=== PATIENT | female | born 1945 | race Caucasian/White ===

== ENCOUNTER 2023-06-02 15:20 | Emergency (ER) | payer SELFPAY ==
[~2023-06-02] VITALS: Ht 152.4 cm; Wt 64.0 kg
[2023-06-02 15:27] VITALS: TEMP 98.5
[2023-06-02] MEDS ORDERED: normal saline 1000ml 1,000 ML IV ONE (15:55)
[2023-06-02] MEDS ORDERED: metoclopramide 5 mg/ml inj IV ONE (15:55)
[2023-06-02] MEDS ORDERED: diphenhydrAMINE 50 mg/ml inj IV ONE (15:55)
[2023-06-02 16:25] LABS: BASOPHILS # (AUTO) 0.1 X10'3 (0-0.2); BASOPHILS % (AUTO) 0.6 % (0-1); EOSINOPHILS # (AUTO) 0.3 X10'3 (0-0.9); EOSINOPHILS % (AUTO) 2.5 % (0-6); HEMATOCRIT 46.5 % (35.0-45.0); HEMOGLOBIN 15.4 g/dl (12.0-16.0); LYMPHOCYTES # (AUTO) 1.5 X10'3 (1.1-4.8); LYMPHOCYTES % (AUTO) 11.6 % (21-51); MEAN CORPUSCULAR HEMOGLOBIN 32.1 PG (27.0-31.0); MEAN CORPUSCULAR HGB CONC 33.2 g/dL (33.0-36.5); MEAN CORPUSCULAR VOLUME 96.9 FL (78-98); MEAN PLATELET VOLUME 7.6 FL (7.4-10.4); MONOCYTES # (AUTO) 0.9 X10'3 (0-0.9); MONOCYTES % (AUTO) 7.1 % (2-12); NEUTROPHILS # (AUTO) 10.2 X10'3 (1.8-7.7); NEUTROPHILS % (AUTO) 78.2 % (42-75); PLATELET COUNT 364 X10'3 (140-440); RED CELL DISTRIBUTION WIDTH 13.6 % (11.5-14.5)
[2023-06-02 17:53] LABS: BILIRUBIN,URINE NEGATIVE (Neg); CLARITY,URINE CLEAR (Clear); COLOR,URINE YELLOW (Yellow); GLUCOSE, URINE NEGATIVE (Neg); KETONES,URINE NEGATIVE (Neg); LEUKOCYTE ESTERASE ,URINE NEGATIVE (Neg); NITRITES, URINE NEGATIVE (Neg); OCCULT BLOOD,URINE NEGATIVE (Neg); PROTEIN,URINE NEGATIVE (Neg); UROBILINOGEN,URINE 0.2 E.U/dL (0.2-1.0)
[2023-06-02 17:54] LABS: UA COLLECTION TYPE VOIDED
[2023-06-02 17:58] LABS: ALANINE AMINOTRANSFERASE 21 U/L (12-78); ALBUMIN 3.2 G/DL (3.4-5.0); ALKALINE PHOSPHATASE 82 IU/L (46-116); ANION GAP 9 (8-16); ASPARTATE AMINO TRANSFERASE 18 U/L (10-37); BILIRUBIN,TOTAL 0.4 MG/DL (0.1-1.0); BLOOD UREA NITROGEN 15 MG/DL (7-18); BUN/CREATININE RATIO 17.6 (10.0-20.0); CALCIUM 8.4 MG/DL (8.5-10.1); CHLORIDE 108 MMOL/L (99-107); CREATININE 0.85 MG/DL (0.40-0.90); GLUCOSE 111 MG/DL (70-104); LIPASE 155 U/L (16-77); POTASSIUM 4.2 MMOL/L (3.5-5.1); SODIUM 143 MMOL/L (135-145); TOTAL PROTEIN 6.5 G/DL (6.4-8.2); eCRCL 39 ML/MIN; eGFR 65 ML/MIN
[2023-06-02 19:26] VITALS: BP 179/96; PULSE 101; RESP 18; O2SAT 95
== END 2023-06-02 19:32 | disposition home or self-care (01) ==
LOC: ER 15:22
DX: R11.2 Nausea with vomiting, unspecified (principal); Z20.822 Contact with and (suspected) exposure to COVID-19; R10.9 Unspecified abdominal pain; R50.9 Fever, unspecified; Z88.6 Allergy status to analgesic agent
CPT/HCPCS: 36415; 71045; 80053; 81003; 83690; 84145; 85025; 87811; 96361; 96374; 96375; 99284; J1200; J2765; J7030

== ENCOUNTER 2023-06-22 10:54 | Emergency (ER) | payer MEDICARE ==
[~2023-06-22] VITALS: Ht 165.1 cm; Wt 63.6 kg
[2023-06-22 12:51] LABS: ALANINE AMINOTRANSFERASE 14 U/L (12-78); ALBUMIN 3.2 G/DL (3.4-5.0); ALBUMIN/GLOBULIN RATIO 0.7 (1.1-1.5); ALKALINE PHOSPHATASE 92 IU/L (46-116); ANION GAP 12 (8-16); ASPARTATE AMINO TRANSFERASE 17 U/L (10-37); BILIRUBIN,TOTAL 0.3 MG/DL (0.1-1.0); BLOOD UREA NITROGEN 19 MG/DL (7-18); BUN/CREATININE RATIO 17.8 (10.0-20.0); CHLORIDE 103 MMOL/L (99-107); CREATININE 1.07 MG/DL (0.40-0.90); GLUCOSE 113 MG/DL (70-104); POTASSIUM 4.2 MMOL/L (3.5-5.1); SODIUM 137 MMOL/L (135-145); TOTAL CARBON DIOXIDE 22.2 MMOL/L (24-32); TOTAL PROTEIN 7.8 G/DL (6.4-8.2); eCRCL 38 ML/MIN; eGFR 49 ML/MIN
[2023-06-22 12:52] LABS: BASOPHILS % (AUTO) 0.2 % (0-1); EOSINOPHILS # (AUTO) 0.1 X10'3 (0-0.9); EOSINOPHILS % (AUTO) 0.6 % (0-6); HEMATOCRIT 43.4 % (35.0-45.0); LYMPHOCYTES # (AUTO) 0.7 X10'3 (1.1-4.8); LYMPHOCYTES % (AUTO) 4.6 % (21-51); MEAN CORPUSCULAR HEMOGLOBIN 30.9 PG (27.0-31.0); MEAN CORPUSCULAR HGB CONC 32.4 g/dL (33.0-36.5); MEAN CORPUSCULAR VOLUME 95.3 FL (78-98); MEAN PLATELET VOLUME 6.6 FL (7.4-10.4); MONOCYTES # (AUTO) 1.2 X10'3 (0-0.9); MONOCYTES % (AUTO) 8.1 % (2-12); NEUTROPHILS # (AUTO) 12.6 X10'3 (1.8-7.7); NEUTROPHILS % (AUTO) 86.5 % (42-75); PLATELET COUNT 530 X10'3 (140-440); RED BLOOD COUNT 4.55 X10'6 (4.20-5.60); RED CELL DISTRIBUTION WIDTH 13.4 % (11.5-14.5); WHITE BLOOD COUNT 14.5 X10'3 (4.5-11.0)
[2023-06-22 12:54] LABS: LIPASE 48 U/L (16-77)
[2023-06-22] MEDS ORDERED: normal saline 1000ml 1,000 ML IV ONE ×2 (13:50)
[2023-06-22] MEDS ORDERED: ondansetron/PF 4mg/2ml inj IV ONE (13:50)
[2023-06-22 14:44] VITALS: BP 163/91; PULSE 111; RESP 18; TEMP 97.9; O2SAT 95
[2023-06-22 15:06] LABS: BILIRUBIN,URINE NEGATIVE (Neg); CLARITY,URINE CLEAR (Clear); COLOR,URINE YELLOW (Yellow); GLUCOSE, URINE NEGATIVE (Neg); KETONES,URINE TRACE mg/dl (Neg); LEUKOCYTE ESTERASE ,URINE NEGATIVE (Neg); NITRITES, URINE NEGATIVE (Neg); OCCULT BLOOD,URINE NEGATIVE (Neg); PH,URINE 5.5 (4.8-8.0); PROTEIN,URINE NEGATIVE (Neg); UROBILINOGEN,URINE 0.2 E.U/dL (0.2-1.0)
[2023-06-22 15:10] LABS: UA COLLECTION TYPE CLN CATCH MIDSTREAM
[2023-06-22] MEDS ORDERED: ONDA4TAB12 PO (16:09)
== END 2023-06-22 17:21 | disposition home or self-care (01) ==
LOC: ER 10:55
DX: A08.4 Viral intestinal infection, unspecified (principal); R10.84 Generalized abdominal pain; R11.2 Nausea with vomiting, unspecified; Z88.6 Allergy status to analgesic agent
CPT/HCPCS: 36415; 71045; 80053; 81003; 83690; 83735; 84484; 85025; 96360; 96361; 99284; J7030

== ENCOUNTER 2023-06-24 08:17 | Emergency (ER) | payer MEDICARE ==
[~2023-06-24] VITALS: Ht 165.1 cm; Wt 65.0 kg
[~2023-06-24 08:17] MED LIST: ONDA4TAB12 PO
[2023-06-24] MEDS ORDERED: normal saline 1000ML IV soln IVB ONE (08:35)
[2023-06-24 09:54] LABS: EOSINOPHILS # (AUTO) 0.1 X10'3 (0-0.9); EOSINOPHILS % (AUTO) 1.1 % (0-6); HEMOGLOBIN 13.5 g/dl (12.0-16.0); NEUTROPHILS # (AUTO) 3.6 X10'3 (1.8-7.7)
[2023-06-24 10:02] LABS: BASOPHILS % (AUTO) 0.6 % (0-1); HEMATOCRIT 40.3 % (35.0-45.0); LYMPHOCYTES # (AUTO) 0.9 X10'3 (1.1-4.8); LYMPHOCYTES % (AUTO) 16.1 % (21-51); MEAN CORPUSCULAR HEMOGLOBIN 31.5 PG (27.0-31.0); MEAN CORPUSCULAR HGB CONC 33.5 g/dL (33.0-36.5); MONOCYTES # (AUTO) 0.9 X10'3 (0-0.9); NEUTROPHILS % (AUTO) 66.2 % (42-75); PLATELET COUNT 402 X10'3 (140-440); RED BLOOD COUNT 4.28 X10'6 (4.20-5.60); RED CELL DISTRIBUTION WIDTH 13.4 % (11.5-14.5); WHITE BLOOD COUNT 5.4 X10'3 (4.5-11.0)
[2023-06-24 10:21] LABS: ALANINE AMINOTRANSFERASE 13 U/L (12-78); ALBUMIN 2.5 G/DL (3.4-5.0); ALBUMIN/GLOBULIN RATIO 0.6 (1.1-1.5); ALKALINE PHOSPHATASE 78 IU/L (46-116); ANION GAP 10 (8-16); ASPARTATE AMINO TRANSFERASE 20 U/L (10-37); BILIRUBIN,TOTAL 0.2 MG/DL (0.1-1.0); BLOOD UREA NITROGEN 13 MG/DL (7-18); BUN/CREATININE RATIO 14.6 (10.0-20.0); CALCIUM 8.4 MG/DL (8.5-10.1); CHLORIDE 105 MMOL/L (99-107); CREATININE 0.89 MG/DL (0.40-0.90); GLUCOSE 99 MG/DL (70-104); POTASSIUM 4.2 MMOL/L (3.5-5.1); SODIUM 137 MMOL/L (135-145); TOTAL CARBON DIOXIDE 21.7 MMOL/L (24-32); TOTAL PROTEIN 6.5 G/DL (6.4-8.2); eCRCL 46 ML/MIN; eGFR 61 ML/MIN
[2023-06-24 10:27] LABS: ETHANOL < 10 MG/DL (<10); LIPASE 32 U/L (16-77); MAGNESIUM 1.9 MG/DL (1.5-2.4); PRO BRAIN NATRIURETIC PEPTIDE 252 PG/ML (0-450)
[2023-06-24 11:26] LABS: PLATELET ESTIMATE NORMAL; TOTAL CELLS COUNTED 100
[2023-06-24] MEDS ORDERED: dexamethasone sod phosphate 10mg/ml inj IV STA (11:39)
[2023-06-24] MEDS ORDERED: ipratropium/albuterol 3ml nebule NEB ONE (11:40)
[2023-06-24] MEDS ORDERED: diphenhydrAMINE 25 MG/10 ML UD oral solution PO ONE (11:40)
[2023-06-24 11:49] VITALS: PULSE 98; RESP 18
[2023-06-24] MEDS ORDERED: ALBU6.7H14 INH (11:50)
[2023-06-24 11:54] VITALS: PULSE 92; RESP 20; O2SAT 100
[2023-06-24 12:24] VITALS: BP 171/81; PULSE 16; RESP 22; TEMP 98.9; O2SAT 94
== END 2023-06-24 12:26 | disposition home or self-care (01) ==
LOC: ER 08:18
DX: B34.9 Viral infection, unspecified (principal); Z59.00 Homelessness unspecified; W18.39XA Other fall on same level, initial encounter; Y99.8 Other external cause status; Y93.89 Activity, other specified; Y92.89 Other specified places as the place of occurrence of the external cause
CPT/HCPCS: 36415; 71045; 80053; 80320; 83690; 83735; 83880; 84484; 85007; 85025; 93005; 94640; 96361; 96374; 99285; J1100; J7030; Q0163; 94760

== ENCOUNTER 2023-08-24 19:04 | Inpatient (IN) | payer MEDICARE ==
[~2023-08-24] VITALS: Ht 165.1 cm; Wt 61.0 kg
[~2023-08-24 19:04] MED LIST changes: +ALBU6.7H14 INH
[2023-08-24 19:28] LABS: BASOPHILS # (AUTO) 0.1 X10'3 (0-0.2); BASOPHILS % (AUTO) 0.8 % (0-1); EOSINOPHILS # (AUTO) 0.1 X10'3 (0-0.9); EOSINOPHILS % (AUTO) 0.4 % (0-6); HEMATOCRIT 32.4 % (35.0-45.0); HEMOGLOBIN 10.9 g/dl (12.0-16.0); LYMPHOCYTES # (AUTO) 1.6 X10'3 (1.1-4.8); LYMPHOCYTES % (AUTO) 9.6 % (21-51); MEAN CORPUSCULAR HEMOGLOBIN 29.3 PG (27.0-31.0); MEAN CORPUSCULAR HGB CONC 33.7 g/dL (33.0-36.5); MEAN PLATELET VOLUME 6.6 FL (7.4-10.4); MONOCYTES # (AUTO) 1.6 X10'3 (0-0.9); MONOCYTES % (AUTO) 9.8 % (2-12); NEUTROPHILS # (AUTO) 12.9 X10'3 (1.8-7.7); NEUTROPHILS % (AUTO) 79.4 % (42-75); PLATELET COUNT 463 X10'3 (140-440); RED BLOOD COUNT 3.73 X10'6 (4.20-5.60); RED CELL DISTRIBUTION WIDTH 15.9 % (11.5-14.5); WHITE BLOOD COUNT 16.2 X10'3 (4.5-11.0)
[2023-08-24 19:45] LABS: ALANINE AMINOTRANSFERASE 15 U/L (12-78); ALBUMIN 2.2 G/DL (3.4-5.0); ALBUMIN/GLOBULIN RATIO 0.5 (1.1-1.5); ALKALINE PHOSPHATASE 63 IU/L (46-116); ANION GAP 11 (8-16); ASPARTATE AMINO TRANSFERASE 14 U/L (10-37); BILIRUBIN,TOTAL 0.3 MG/DL (0.1-1.0); BLOOD UREA NITROGEN 14 MG/DL (7-18); BUN/CREATININE RATIO 13.7 (10.0-20.0); CALCIUM 8.2 MG/DL (8.5-10.1); CHLORIDE 105 MMOL/L (99-107); CREATININE 1.02 MG/DL (0.40-0.90); GLUCOSE 107 MG/DL (70-104); POTASSIUM 4.3 MMOL/L (3.5-5.1); SODIUM 139 MMOL/L (135-145); TOTAL CARBON DIOXIDE 22.8 MMOL/L (24-32); TOTAL PROTEIN 6.4 G/DL (6.4-8.2); eCRCL 40 ML/MIN; eGFR 52 ML/MIN
[2023-08-24 19:56] LABS: PRO BRAIN NATRIURETIC PEPTIDE 274 PG/ML (0-450)
[2023-08-24 20:08] LABS: BILIRUBIN,URINE SMALL (Neg); COLOR,URINE YELLOW (Yellow); GLUCOSE, URINE NEGATIVE (Neg); KETONES,URINE TRACE mg/dl (Neg); LEUKOCYTE ESTERASE ,URINE NEGATIVE (Neg); NITRITES, URINE NEGATIVE (Neg); OCCULT BLOOD,URINE NEGATIVE (Neg); PH,URINE 5.5 (4.8-8.0); PROTEIN,URINE NEGATIVE (Neg); UROBILINOGEN,URINE 0.2 E.U/dL (0.2-1.0)
[2023-08-24 20:20] LABS: UA COLLECTION TYPE CLN CATCH MIDSTREAM
[2023-08-24 20:21] LABS: BACTERIA,URINE FEW /HPF (Neg); CLARITY,URINE SLIGHTLY CLOUDY (Clear); MUCUS STRANDS FEW /LPF (Neg); RBC,URINE 0-2 /HPF (0-2); SQUAMOUS EPITHELIAL CELL,UR FEW /LPF (FEW); WBC,URINE 0-4 /HPF (0-4)
[2023-08-24] MEDS: CefTRIAXone/D5W-Rocephin 1gm 50 ML IV ONE (23:53)
[2023-08-24] MEDS: azithromycin/NS 500mg/250ml 250 ML IV ONE (23:56)
[2023-08-25] VITALS (21 sets, daily range): BP systolic 103–137; BP diastolic 53–71; PULSE 74–111; RESP 14–20; TEMP 97.1–98; O2SAT 90–97
[2023-08-25] MEDS ORDERED: magnesium 2GM in 50ml NS 50 ML IV PRN (00:05)
[2023-08-25] MEDS ORDERED: potassium Cl 20 mEq SR tablet PO PRN ×2 (00:05)
[2023-08-25] MEDS ORDERED: magnesium Cl slow-release 64mg tablet PO PRN (00:05)
[2023-08-25] MEDS ORDERED: magnesium 4gm in 100ml NS 100 ML IV PRN (00:05)
[2023-08-25] MEDS ORDERED: mag hydrox/Alum hydrox/simeth 30ml oral suspension PO PRN (00:05)
[2023-08-25] MEDS ORDERED: magnesium hydroxide 30ml (MOM) UD suspension PO PRN (00:05)
[2023-08-25] MEDS ORDERED: ondansetron/PF 4mg/2ml inj IV PRN (00:05)
[2023-08-25] MEDS ORDERED: potassium Cl 40MEQ/1/2NS 520ml 520 ML IV PRN (00:05)
[2023-08-25] MEDS: ipratropium/albuterol 3ml nebule NEB SCH (00:05)
[2023-08-25] MEDS: normal saline 1000ml 1,000 ML IV SCH (00:34)
[2023-08-25] MEDS: methylPREDNISolone sod succ 125mg/2ml vial IV ONE (00:46)
[2023-08-25 01:45] LABS: POTASSIUM 4.3 MMOL/L (3.5-5.1)
[2023-08-25] MEDS: K and/or MAG REPLACEMENT MC SCH (08:00)
[2023-08-25] MEDS: methylPREDNISolone sod succ/PF 40mg inj. IV SCH (08:09)
[2023-08-25] MEDS: docusate sod 100mg capsule PO SCH (08:21)
[2023-08-25] MEDS: enoxaparin 40mg/0.4ml syringe SUBCUT SCH (08:22)
[2023-08-25] MEDS: azithromycin/NS 500mg/250ml 250 ML IV SCH (08:34)
[2023-08-25] MEDS: guaiFENesin/DM 10ml UD oral syrup PO PRN (12:42)
[2023-08-26] VITALS (15 sets, daily range): BP systolic 109–158; BP diastolic 60–76; PULSE 61–108; RESP 16–20; TEMP 97.7–98.6; O2SAT 92–98
[2023-08-26] MEDS: CefTRIAXone/D5W-Rocephin 1gm 50 ML IV SCH (00:36)
[2023-08-26 06:41] LABS: BASOPHILS % (AUTO) 0.1 % (0-1); EOSINOPHILS % (AUTO) 0 % (0-6); HEMATOCRIT 30.8 % (35.0-45.0); HEMOGLOBIN 10.2 g/dl (12.0-16.0); LYMPHOCYTES # (AUTO) 1.7 X10'3 (1.1-4.8); LYMPHOCYTES % (AUTO) 5.7 % (21-51); MEAN CORPUSCULAR HEMOGLOBIN 28.9 PG (27.0-31.0); MEAN CORPUSCULAR HGB CONC 33.3 g/dL (33.0-36.5); MEAN CORPUSCULAR VOLUME 86.8 FL (78-98); MONOCYTES # (AUTO) 1.4 X10'3 (0-0.9); MONOCYTES % (AUTO) 4.7 % (2-12); NEUTROPHILS # (AUTO) 26.1 X10'3 (1.8-7.7); NEUTROPHILS % (AUTO) 89.5 % (42-75); PLATELET COUNT 496 X10'3 (140-440); RED BLOOD COUNT 3.55 X10'6 (4.20-5.60); RED CELL DISTRIBUTION WIDTH 15.8 % (11.5-14.5)
[2023-08-26 06:49] LABS: ALBUMIN 2.1 G/DL (3.4-5.0); ANION GAP 7 (8-16); BLOOD UREA NITROGEN 15 MG/DL (7-18); BUN/CREATININE RATIO 16.5 (10.0-20.0); CALCIUM 8.5 MG/DL (8.5-10.1); CHLORIDE 111 MMOL/L (99-107); CREATININE 0.91 MG/DL (0.40-0.90); GLUCOSE 147 MG/DL (70-104); MAGNESIUM 2.2 MG/DL (1.5-2.4); POTASSIUM 4.1 MMOL/L (3.5-5.1); SODIUM 143 MMOL/L (135-145); TOTAL CARBON DIOXIDE 24.6 MMOL/L (24-32); eCRCL 44 ML/MIN; eGFR 59 ML/MIN
[2023-08-26 07:07] LABS: WHITE BLOOD COUNT 29.1 X10'3 (4.5-11.0)
[2023-08-26 08:25] LABS: C-REACTIVE PROTEIN 8.08 MG/DL (0.0-0.5)
[2023-08-26] MEDS: nicotine 14mg patch - 24hr TD SCH (08:38)
[2023-08-26] MEDS: methylPREDNISolone sod succ/PF 40mg inj. IV SCH (08:42)
[2023-08-26 09:46] LABS: PLATELET ESTIMATE INCREASED; TOTAL CELLS COUNTED 100
[2023-08-26] MEDS: LORazepam 0.5 MG tablet PO PRN (12:59)
[2023-08-26] MEDS: acetaminophen 325mg tablet PO PRN (16:22)
[2023-08-27 06:43] VITALS: BP 160/80; PULSE 70; RESP 16; TEMP 97.3; O2SAT 97
[2023-08-27 06:55] VITALS: BP 147/67; PULSE 86; RESP 16; TEMP 98.6; O2SAT 96
[2023-08-27 08:51] LABS: BASOPHILS # (AUTO) 0.1 X10'3 (0-0.2); BASOPHILS % (AUTO) 0.3 % (0-1); EOSINOPHILS % (AUTO) 0 % (0-6); HEMATOCRIT 30.5 % (35.0-45.0); HEMOGLOBIN 9.9 g/dl (12.0-16.0); LYMPHOCYTES # (AUTO) 2.2 X10'3 (1.1-4.8); LYMPHOCYTES % (AUTO) 8.6 % (21-51); MEAN CORPUSCULAR HEMOGLOBIN 28.6 PG (27.0-31.0); MEAN CORPUSCULAR HGB CONC 32.6 g/dL (33.0-36.5); MEAN CORPUSCULAR VOLUME 87.5 FL (78-98); MEAN PLATELET VOLUME 6.8 FL (7.4-10.4); MONOCYTES # (AUTO) 1.2 X10'3 (0-0.9); MONOCYTES % (AUTO) 4.7 % (2-12); NEUTROPHILS # (AUTO) 22.2 X10'3 (1.8-7.7); NEUTROPHILS % (AUTO) 86.4 % (42-75); PLATELET COUNT 526 X10'3 (140-440); RED BLOOD COUNT 3.48 X10'6 (4.20-5.60); RED CELL DISTRIBUTION WIDTH 16.4 % (11.5-14.5)
[2023-08-27 09:01] LABS: WHITE BLOOD COUNT 25.6 X10'3 (4.5-11.0)
[2023-08-27 09:15] LABS: ALBUMIN 2.1 G/DL (3.4-5.0); ANION GAP 13 (8-16); BLOOD UREA NITROGEN 17 MG/DL (7-18); C-REACTIVE PROTEIN 2.95 MG/DL (0.0-0.5); CALCIUM 8.5 MG/DL (8.5-10.1); CHLORIDE 112 MMOL/L (99-107); CREATININE 0.85 MG/DL (0.40-0.90); GLUCOSE 129 MG/DL (70-104); MAGNESIUM 2.1 MG/DL (1.5-2.4); SODIUM 146 MMOL/L (135-145); TOTAL CARBON DIOXIDE 21.5 MMOL/L (24-32); eCRCL 48 ML/MIN; eGFR 64 ML/MIN
[2023-08-27 09:44] LABS: TOTAL CELLS COUNTED 100
[2023-08-27 09:47] LABS: ANISOCYTOSIS 1+; ELLIPTOCYTES FEW; PLATELET ESTIMATE INCREASED
[2023-08-27 10:00] VITALS: BP 160/84; PULSE 66; RESP 16; TEMP 98.5; O2SAT 98
[2023-08-27] MEDS ORDERED: LACT1CAP74 PO (12:30)
[2023-08-27] MEDS ORDERED: PRED10TA23 PO (12:30)
[2023-08-27] MEDS ORDERED: NICO-631 TD (12:30)
[2023-08-27] MEDS ORDERED: CEFD300C3 PO (12:30)
[2023-08-27 12:49] VITALS: RESP 18; O2SAT 92
[2023-08-27 14:04] VITALS: BP 158/64; PULSE 87; RESP 18; TEMP 98; O2SAT 92
== END 2023-08-27 15:45 | disposition home or self-care (01) | DRG 871 ==
LOC: ER 19:04 → ED HOLD 08-25 00:12 → ORTHO 4S 08-25 02:07
PROVIDERS: ADMIT Surgery Surgical Critical Care; ATTEND Family Medicine
DX: A41.9 Sepsis, unspecified organism (principal); J18.9 Pneumonia, unspecified organism; N17.0 Acute kidney failure with tubular necrosis; J44.0 Chronic obstructive pulmonary disease with (acute) lower respiratory infection; J44.1 Chronic obstructive pulmonary disease with (acute) exacerbation; Z59.00 Homelessness unspecified; F17.210 Nicotine dependence, cigarettes, uncomplicated; T38.0X5A Adverse effect of glucocorticoids and synthetic analogues, initial encounter; Y92.238 Other place in hospital as the place of occurrence of the external cause; Z20.822 Contact with and (suspected) exposure to COVID-19; Z88.6 Allergy status to analgesic agent
CPT/HCPCS: 36415; 71045; 80048; 80053; 81001; 83605; 83735; 83880; 84132; 84145; 84484; 85007; 85025; 86140; 87040; 87081; 87502; 87503; 87811; 93005; 94640; 94760; 97161; 97530; 99285; A6258; G0378; J0456; J0696; J1650; J2920; J2930; J7030